=== PATIENT | female | born 1950 | race Caucasian/White ===

== ENCOUNTER 2024-06-19 10:14 | Emergency (ER) | payer BC, MEDICAID ==
[~2024-06-19] VITALS: Ht 167.6 cm; Wt 68.0 kg
[2024-06-19 10:20] VITALS: O2SAT 97
[2024-06-19 10:32] VITALS: BP 162/86; PULSE 88; RESP 18; TEMP 97.8; O2SAT 100
[2024-06-19] MEDS ORDERED: CARB100C9 MT (11:38)
== END 2024-06-19 12:50 | disposition home or self-care (01) ==
LOC: ER 10:14
DX: G50.0 Trigeminal neuralgia (principal); I10 Essential (primary) hypertension
CPT/HCPCS: 99281; 99283